=== PATIENT | male | born 1940 | race Caucasian/White ===

== ENCOUNTER 2019-08-05 07:33 | Inpatient (IN) | payer MEDICAID, OTHER, SELFPAY ==
[~2019-08-05] VITALS: Ht 165.1 cm; Wt 67.1 kg
[2019-08-05 08:59] LABS: BG CARBOXYHEMOGLOBIN 0.9 % (0.5-1.5); BG DEOXYHEMOGLOBIN 10.1 % (0.0-5.0); BG FRACTION INSPIRED OXYGEN 100; BG HCO3 ACT 17.1 mmol/L (22.0-26.0); BG METHEMOGLOBIN 0.1 % (0.0-1.5); BG OXYGEN SATURATION 89.8 % (92.0-98.5); BG OXYHEMOGLOBIN 88.9 % (94.0-97.0); BG PCO2 23.2 mmHg (35.0-45.0); BG PH 7.486 (7.350-7.450); BG PO2 57.5 mmHg (75.0-100.0); BG SAMPLE SITE RIGHT RADIAL; BG TOTAL HEMOGLOBIN 15.3 g/dL (12.0-18.0); BG VENT MODE MASK - NRB
[2019-08-05 08:59] LABS: BASOPHILS % 0.2 % (0.0-2.0); EOSINOPHILS % 0.3 % (0.0-5.0); HEMOGLOBIN. 14.6 g/dL (14.0-18.0); LYMPHOCYTES % 8.4 % (20.0-50.0); MEAN CORPUSCULAR HEMOGLOBIN 31.6 pg (28.0-32.0); MEAN CORPUSCULAR VOLUME 90.8 fL (80.0-94.0); MEAN PLATELET VOLUME 8.7 fl (7.4-10.4); MONOCYTES % 7.2 % (2.0-8.0); NEUTROPHILS % 83.9 % (40.0-76.0); PLATELET 213 x1000/uL (130-400); RED BLOOD CELL COUNT 4.63 mill/uL (4.7-6.1); RED CELL DISTRIBUTION WIDTH 13.8 % (11.6-14.6)
[2019-08-05 09:04] LABS: CHLORIDE 111 mEq/L (98-107)
[2019-08-05 09:10] LABS: D-DIMER 6.28 mg/L FEU (<0.50); PROTHROMBIN TIME 10.2 sec (9.6-11.0)
[2019-08-05 09:12] LABS: CREATINE KINASE 248 IU/L (39-308)
[2019-08-05] MEDS ORDERED: LEVOFLOXACIN 750MG PREMIX 150 ML IV ONE (10:15)
[2019-08-05 12:07] LABS: CLARITY URINE CLEAR (CLEAR); COLOR URINE YELLOW (YELLOW); KETONES URINE TRACE (NEGATIVE); LEUKOCYTE ESTERASE URINE NEGATIVE (NEGATIVE); NITRITE URINE NEGATIVE (NEGATIVE); OCCULT BLOOD URINE NEGATIVE (NEGATIVE); PROTEIN URINE 1+ (NEGATIVE); SPECIFIC GRAVITY URINE 1.024 (1.005-1.030)
[2019-08-05] MEDS ORDERED: ONDANSETRON HCL 4MG/2ML INJ IV PRN (13:00)
[2019-08-05] MEDS ORDERED: GUAIFENESIN 200MG/10ML SUGAR FREE UDC PO PRN (13:00)
[2019-08-05] MEDS ORDERED: MAGNESIUM/ALUMINUM HYDROXIDE/SIMETHICONE 30ML UDC PO PRN (13:00)
[2019-08-05] MEDS ORDERED: DOCUSATE SODIUM 100MG CAPSULE PO PRN (13:00)
[2019-08-05] MEDS ORDERED: CEFTRIAXONE 1 G PREMIX 50 ML IV SCH (14:30)
[2019-08-05] MEDS ORDERED: IOHEXOL-350 100 ML BOTTLE ONE (14:47)
[2019-08-05] MEDS ORDERED: ENOXAPARIN 40MG/0.4ML SYR SUBCUT SCH (15:00)
[2019-08-05] MEDS ORDERED: AZITHROMYCIN 500 MG in DEXT 5% WATER 250 ML IV SCH (15:00)
[2019-08-05] MEDS: POTASSIUM CHLORIDE 20MEQ TABLET SR PO SCH (15:20)
[2019-08-05] MEDS: SODIUM CHLORIDE 0.45% 1,000 ML IV NR (15:21)
[2019-08-05] MEDS: DEXAMETHASONE 4MG TABLET PO SCH (19:02)
[2019-08-05] MEDS: ALBUTEROL 6.7GM HFA INHALER ORI SCH (19:03)
[2019-08-05] MEDS: ENOXAPARIN 80MG/0.8ML SYR SUBCUT SCH (21:04)
[2019-08-06] VITALS (7 sets, daily range): BP systolic 128–139; BP diastolic 62–67
[2019-08-06] MEDS ORDERED: CALC1CAP22 PO (01:35)
[2019-08-06] MEDS ORDERED: IBUP-2029 PO (01:36)
[2019-08-06] MEDS ORDERED: GABA300S PO (01:36)
[2019-08-06] MEDS ORDERED: TETR15DR86 OP (01:37)
[2019-08-06] MEDS: ALBUTEROL 6.7GM HFA INHALER ORI SCH ×4 (04:00→18:46)
[2019-08-06] MEDS: DEXAMETHASONE 4MG TABLET PO SCH (08:52)
[2019-08-06] MEDS: POTASSIUM CHLORIDE 20MEQ TABLET SR PO SCH (08:52)
[2019-08-06] MEDS: ENOXAPARIN 80MG/0.8ML SYR SUBCUT SCH ×2 (08:53→21:05)
[2019-08-06] MEDS: SODIUM CHLORIDE 0.45% 1,000 ML IV NR (09:53)
[2019-08-06] MEDS ORDERED: MORPHINE SULFATE 2 MG/ML CPJ (NOT FOR IM USE) IV PRN (11:15)
[2019-08-06] MEDS: LORAZEPAM 2MG/ML CPJ IV PRN ×2 (11:49→21:27)
[2019-08-06] MEDS ORDERED: PNEUMOCOCCAL 23-VAL P-SAC VAC 0.5 ML IM ONE (12:00)
[2019-08-06] MEDS: CEFTRIAXONE 1 G PREMIX 50 ML IV SCH (16:14)
[2019-08-06] MEDS: AZITHROMYCIN 500 MG in DEXT 5% WATER 250 ML IV SCH (16:15)
[2019-08-07] VITALS (15 sets, daily range): BP systolic 95–148; BP diastolic 53–73
[2019-08-07] MEDS: SODIUM CHLORIDE 0.45% 1,000 ML IV NR ×2 (00:04→17:00)
[2019-08-07] MEDS: ALBUTEROL 6.7GM HFA INHALER ORI SCH ×4 (02:14→20:37)
[2019-08-07] MEDS: POTASSIUM CHLORIDE 20MEQ TABLET SR PO SCH (08:31)
[2019-08-07] MEDS: DEXAMETHASONE 4MG TABLET PO SCH (08:31)
[2019-08-07] MEDS: ENOXAPARIN 80MG/0.8ML SYR SUBCUT SCH ×2 (08:31→21:14)
[2019-08-07] MEDS: CEFTRIAXONE 1 G PREMIX 50 ML IV SCH (08:32)
[2019-08-07] MEDS: AZITHROMYCIN 500 MG in DEXT 5% WATER 250 ML IV SCH (08:32)
[2019-08-07 10:15] LABS: BG CARBOXYHEMOGLOBIN 0.4 % (0.5-1.5); BG DEOXYHEMOGLOBIN 12.7 % (0.0-5.0); BG FRACTION INSPIRED OXYGEN 100; BG HCO3 ACT 18.4 mmol/L (22.0-26.0); BG METHEMOGLOBIN 0.2 % (0.0-1.5); BG OXYGEN SATURATION 87.2 % (92.0-98.5); BG OXYHEMOGLOBIN 86.7 % (94.0-97.0); BG PCO2 27.1 mmHg (35.0-45.0); BG PO2 52.4 mmHg (75.0-100.0); BG SAMPLE SITE RIGHT RADIAL; BG TOTAL HEMOGLOBIN 14.4 g/dL (12.0-18.0); BG VENT MODE MASK - NRB
[2019-08-07] MEDS: LORAZEPAM 2MG/ML CPJ IV PRN (10:23)
[2019-08-07 10:30] LABS: CHLORIDE 111 mEq/L (98-107)
[2019-08-07] MEDS ORDERED: SODIUM BICARBONATE 8.4% 1 MEQ/ML 50ML SYR IV NR (12:30)
[2019-08-07] MEDS: PROPOFOL 10MG/ML 100ML 100 ML IV PRN ×3 (15:35→16:25)
[2019-08-07 17:32] LABS: BG CARBOXYHEMOGLOBIN 0.4 % (0.5-1.5); BG DEOXYHEMOGLOBIN 4.2 % (0.0-5.0); BG FRACTION INSPIRED OXYGEN 100; BG HCO3 ACT 20.5 mmol/L (22.0-26.0); BG METHEMOGLOBIN 0.3 % (0.0-1.5); BG OXYGEN SATURATION 95.8 % (92.0-98.5); BG OXYHEMOGLOBIN 95.1 % (94.0-97.0); BG PCO2 32.6 mmHg (35.0-45.0); BG PH 7.417 (7.350-7.450); BG PO2 84.7 mmHg (75.0-100.0); BG SAMPLE SITE RIGHT RADIAL; BG TIDAL VOLUME(mL) 500 mL; BG VENT MODE VENT - A/C PRVC; BG VENT RATE 20 set
[2019-08-08] VITALS (63 sets, daily range): BP systolic 87–146; BP diastolic 35–70
[2019-08-08] MEDS: PROPOFOL 10MG/ML 100ML 100 ML IV PRN ×4 (00:10→22:39)
[2019-08-08] MEDS: ALBUTEROL 6.7GM HFA INHALER ORI SCH ×4 (00:20→20:20)
[2019-08-08 08:08] LABS: HEMATOCRIT 38.7 % (42.0-52.0); HEMOGLOBIN 13.2 g/dL (14.0-18.0); MEAN CORPUSCULAR HEMOGLOBIN 31.6 pg (28.0-32.0); MEAN CORPUSCULAR VOLUME 93.1 fL (80.0-94.0); PLATELET 252 x1000/uL (130-400); RED BLOOD CELL COUNT 4.16 mill/uL (4.7-6.1); RED CELL DISTRIBUTION WIDTH 13.8 % (11.6-14.6)
[2019-08-08] MEDS: AZITHROMYCIN 500 MG in DEXT 5% WATER 250 ML IV SCH (10:02)
[2019-08-08] MEDS: CEFTRIAXONE 1 G PREMIX 50 ML IV SCH (10:02)
[2019-08-08] MEDS: ENOXAPARIN 80MG/0.8ML SYR SUBCUT SCH ×2 (10:03→21:02)
[2019-08-08] MEDS: DEXAMETHASONE 4MG TABLET PO SCH (10:03)
[2019-08-08] MEDS: SODIUM CHLORIDE 0.45% 1,000 ML IV NR (10:03)
[2019-08-08] MEDS ORDERED: POTASSIUM CHLORIDE 20MEQ/PACKET NG NR (10:15)
[2019-08-08] MEDS: FENTANYL CITRATE/PF 1,000 MCG in SODIUM CHLORIDE 0.9% 80 ML IV PRN (10:35)
[2019-08-08] MEDS: LORAZEPAM 2MG/ML CPJ IV PRN (17:51)
[2019-08-08 18:08] LABS: BG BASE EXCESS -3.7 mmol/L (-2.0-2.0); BG CARBOXYHEMOGLOBIN 0.3 % (0.5-1.5); BG DEOXYHEMOGLOBIN 3.7 % (0.0-5.0); BG FRACTION INSPIRED OXYGEN 100; BG HCO3 ACT 19.3 mmol/L (22.0-26.0); BG METHEMOGLOBIN 0.3 % (0.0-1.5); BG OXYGEN SATURATION 96.3 % (92.0-98.5); BG OXYHEMOGLOBIN 95.7 % (94.0-97.0); BG PCO2 29.4 mmHg (35.0-45.0); BG PH 7.436 (7.350-7.450); BG PO2 89.4 mmHg (75.0-100.0); BG SAMPLE SITE RIGHT RADIAL; BG TIDAL VOLUME(mL) 500 mL; BG TOTAL HEMOGLOBIN 12.9 g/dL (12.0-18.0); BG VENT MODE PRVC; BG VENT RATE 20 set
[2019-08-08] MEDS: ACETAMINOPHEN 325MG TABLET PO PRN (20:55)
[2019-08-09] VITALS (74 sets, daily range): BP systolic 85–129; BP diastolic 38–69
[2019-08-09] MEDS: FENTANYL CITRATE/PF 1,000 MCG in SODIUM CHLORIDE 0.9% 80 ML IV PRN (02:15)
[2019-08-09] MEDS: SODIUM CHLORIDE 0.45% 1,000 ML IV NR ×2 (04:48→19:26)
[2019-08-09] MEDS: PROPOFOL 10MG/ML 100ML 100 ML IV PRN ×3 (05:32→20:27)
[2019-08-09] MEDS: ALBUTEROL 6.7GM HFA INHALER ORI SCH ×4 (08:08→20:37)
[2019-08-09] MEDS: CEFTRIAXONE 1 G PREMIX 50 ML IV SCH (08:43)
[2019-08-09] MEDS: AZITHROMYCIN 500 MG in DEXT 5% WATER 250 ML IV SCH (08:43)
[2019-08-09] MEDS: ENOXAPARIN 80MG/0.8ML SYR SUBCUT SCH ×2 (08:44→21:04)
[2019-08-09] MEDS ORDERED: DEXAMETHASONE 10 MG/ML VIAL IV SCH (09:00)
[2019-08-09 09:31] LABS: BG BASE EXCESS -4.2 mmol/L (-2.0-2.0); BG CARBOXYHEMOGLOBIN 0.3 % (0.5-1.5); BG FRACTION INSPIRED OXYGEN 100; BG METHEMOGLOBIN 0.3 % (0.0-1.5); BG OXYHEMOGLOBIN 98.4 % (94.0-97.0); BG PCO2 34.1 mmHg (35.0-45.0); BG PH 7.386 (7.350-7.450); BG PO2 216.7 mmHg (75.0-100.0); BG SAMPLE SITE RIGHT RADIAL; BG TIDAL VOLUME(mL) 500 mL; BG TOTAL HEMOGLOBIN 14.3 g/dL (12.0-18.0); BG VENT MODE PRVC; BG VENT RATE 20 set
[2019-08-09] MEDS ORDERED: PROPOFOL 10MG/ML 100ML 100 ML IV PRN ×2 (10:30→22:08)
[2019-08-10] VITALS (44 sets, daily range): BP systolic 107–146; BP diastolic 42–65
[2019-08-10] MEDS: FENTANYL CITRATE/PF 1,000 MCG in SODIUM CHLORIDE 0.9% 80 ML IV PRN (02:15)
[2019-08-10] MEDS: PROPOFOL 10MG/ML 100ML 100 ML IV PRN (04:00)
[2019-08-10] MEDS: ALBUTEROL 6.7GM HFA INHALER ORI SCH ×5 (04:20→21:20)
[2019-08-10 08:08] LABS: BG BASE EXCESS -3.4 mmol/L (-2.0-2.0); BG CARBOXYHEMOGLOBIN 0.3 % (0.5-1.5); BG DEOXYHEMOGLOBIN 3.5 % (0.0-5.0); BG HCO3 ACT 20.7 mmol/L (22.0-26.0); BG METHEMOGLOBIN 0.3 % (0.0-1.5); BG OXYGEN SATURATION 96.5 % (92.0-98.5); BG OXYHEMOGLOBIN 95.9 % (94.0-97.0); BG PCO2 34.3 mmHg (35.0-45.0); BG PH 7.399 (7.350-7.450); BG PO2 86.4 mmHg (75.0-100.0); BG SAMPLE SITE RIGHT RADIAL; BG TIDAL VOLUME(mL) 500 mL; BG TOTAL HEMOGLOBIN 12.8 g/dL (12.0-18.0); BG VENT MODE VENT - A/C; BG VENT RATE 20 set
[2019-08-10] MEDS: DEXAMETHASONE 10 MG/ML VIAL IV SCH (09:48)
[2019-08-10] MEDS: ENOXAPARIN 80MG/0.8ML SYR SUBCUT SCH ×2 (09:48→21:00)
[2019-08-10] MEDS: MIDAZOLAM HCL 100 MG in DEXT 5% WATER 80 ML IV PRN (12:00)
[2019-08-10] MEDS: SODIUM CHLORIDE 0.45% 1,000 ML IV NR (13:12)
[2019-08-11] VITALS (61 sets, daily range): BP systolic 100–171; BP diastolic 43–96
[2019-08-11] MEDS: ALBUTEROL 6.7GM HFA INHALER ORI SCH ×2 (01:10→20:20)
[2019-08-11] MEDS: SODIUM CHLORIDE 0.45% 1,000 ML IV NR (04:04)
[2019-08-11] MEDS: MIDAZOLAM HCL 100 MG in DEXT 5% WATER 80 ML IV PRN (08:16)
[2019-08-11 08:39] LABS: BG BASE EXCESS -1.5 mmol/L (-2.0-2.0); BG CARBOXYHEMOGLOBIN 0.2 % (0.5-1.5); BG FRACTION INSPIRED OXYGEN 80; BG HCO3 ACT 22.8 mmol/L (22.0-26.0); BG METHEMOGLOBIN 0.2 % (0.0-1.5); BG OXYHEMOGLOBIN 95.6 % (94.0-97.0); BG PCO2 37.3 mmHg (35.0-45.0); BG PH 7.404 (7.350-7.450); BG SAMPLE SITE RIGHT RADIAL; BG TIDAL VOLUME(mL) 500 mL; BG TOTAL HEMOGLOBIN 13.8 g/dL (12.0-18.0); BG VENT MODE VENT - PRVC; BG VENT RATE 20 set
[2019-08-11] MEDS: DEXAMETHASONE 10 MG/ML VIAL IV SCH (08:43)
[2019-08-11] MEDS: ENOXAPARIN 80MG/0.8ML SYR SUBCUT SCH ×2 (08:43→21:00)
[2019-08-11] MEDS ORDERED: FUROSEMIDE 100MG/10ML VIAL IVP NR (12:30)
[2019-08-11] MEDS: ACETAMINOPHEN 325MG TABLET PO PRN (14:50)
[2019-08-11] MEDS: FENTANYL CITRATE/PF 1,000 MCG in SODIUM CHLORIDE 0.9% 80 ML IV PRN (22:15)
[2019-08-12] VITALS (65 sets, daily range): BP systolic 118–159; BP diastolic 71–96
[2019-08-12] MEDS: ALBUTEROL 6.7GM HFA INHALER ORI SCH ×4 (01:15→20:57)
[2019-08-12] MEDS: MIDAZOLAM HCL 100 MG in DEXT 5% WATER 80 ML IV PRN ×2 (04:35→21:43)
[2019-08-12 05:15] LABS: CHLORIDE 114 mEq/L (98-107)
[2019-08-12 05:20] LABS: HEMATOCRIT. 40.8 % (42.0-52.0); HEMOGLOBIN. 13.9 g/dL (14.0-18.0); MEAN CORPUSCULAR HEMOGLOBIN 31.7 pg (28.0-32.0); MEAN CORPUSCULAR VOLUME 93.3 fL (80.0-94.0); MEAN PLATELET VOLUME 8.7 fl (7.4-10.4); PLATELET 270 x1000/uL (130-400); RED BLOOD CELL COUNT 4.38 mill/uL (4.7-6.1); RED CELL DISTRIBUTION WIDTH 14.2 % (11.6-14.6)
[2019-08-12] MEDS: DEXAMETHASONE 10 MG/ML VIAL IV SCH (08:15)
[2019-08-12] MEDS: ENOXAPARIN 80MG/0.8ML SYR SUBCUT SCH ×2 (08:16→20:57)
[2019-08-12 08:58] LABS: BG BASE EXCESS -3.4 mmol/L (-2.0-2.0); BG CARBOXYHEMOGLOBIN 0.1 % (0.5-1.5); BG DEOXYHEMOGLOBIN 1.1 % (0.0-5.0); BG FRACTION INSPIRED OXYGEN 80; BG HCO3 ACT 22.7 mmol/L (22.0-26.0); BG METHEMOGLOBIN 0.1 % (0.0-1.5); BG OXYGEN SATURATION 98.9 % (92.0-98.5); BG OXYHEMOGLOBIN 98.7 % (94.0-97.0); BG PCO2 44.4 mmHg (35.0-45.0); BG PH 7.326 (7.350-7.450); BG SAMPLE SITE RIGHT RADIAL; BG TIDAL VOLUME(mL) 500 mL; BG TOTAL HEMOGLOBIN 15.6 g/dL (12.0-18.0); BG VENT MODE PRVC; BG VENT RATE 20 set
[2019-08-12] MEDS: ACETAMINOPHEN 325MG TABLET PO PRN ×2 (09:01→18:19)
[2019-08-12 09:51] LABS: PLATELET ESTIMATE NORMAL
[2019-08-12] MEDS: FENTANYL CITRATE/PF 1,000 MCG in SODIUM CHLORIDE 0.9% 80 ML IV PRN (18:17)
[2019-08-13] VITALS (82 sets, daily range): BP systolic 126–174; BP diastolic 72–122
[2019-08-13] MEDS: ACETAMINOPHEN 325MG TABLET PO PRN ×4 (00:27→19:05)
[2019-08-13] MEDS: ALBUTEROL 6.7GM HFA INHALER ORI SCH ×2 (05:25→12:40)
[2019-08-13 08:34] LABS: BG BASE EXCESS -1.6 mmol/L (-2.0-2.0); BG CARBOXYHEMOGLOBIN 0.3 % (0.5-1.5); BG DEOXYHEMOGLOBIN 2.4 % (0.0-5.0); BG FRACTION INSPIRED OXYGEN 60; BG HCO3 ACT 23.3 mmol/L (22.0-26.0); BG METHEMOGLOBIN 0.2 % (0.0-1.5); BG OXYGEN SATURATION 97.6 % (92.0-98.5); BG OXYHEMOGLOBIN 97.1 % (94.0-97.0); BG PCO2 40.2 mmHg (35.0-45.0); BG PH 7.381 (7.350-7.450); BG PO2 97.3 mmHg (75.0-100.0); BG SAMPLE SITE RIGHT BRACHIAL; BG TIDAL VOLUME(mL) 500 mL; BG TOTAL HEMOGLOBIN 15.7 g/dL (12.0-18.0); BG VENT MODE VENT- PRVC; BG VENT RATE 20 set
[2019-08-13] MEDS: DEXAMETHASONE 10 MG/ML VIAL IV SCH (08:39)
[2019-08-13] MEDS: ENOXAPARIN 80MG/0.8ML SYR SUBCUT SCH ×2 (08:42→21:08)
[2019-08-13] MEDS: DOCUSATE SODIUM SUGAR FREE 100MG/10ML UDC NG PRN (08:42)
[2019-08-13 10:58] LABS: HEMATOCRIT 45.6 % (42.0-52.0); MEAN CORPUSCULAR HEMOGLOBIN 31.4 pg (28.0-32.0); MEAN CORPUSCULAR VOLUME 95.3 fL (80.0-94.0); PLATELET 263 x1000/uL (130-400); RED BLOOD CELL COUNT 4.79 mill/uL (4.7-6.1); RED CELL DISTRIBUTION WIDTH 14.6 % (11.6-14.6)
[2019-08-13 11:11] LABS: CHLORIDE 120 mEq/L (98-107)
[2019-08-13] MEDS: METOCLOPRAMIDE HCL 10MG/2ML VIAL IV SCH ×2 (12:00→19:04)
[2019-08-13] MEDS ORDERED: SODIUM POLYSTYRENE SULFONATE 15 G/60 ML BOT PO NR (13:00)
[2019-08-13] MEDS: CEFEPIME 2,000 MG in DEXT 5% WATER 100 ML IV SCH (13:01)
[2019-08-13] MEDS: METRONIDAZOLE 500 MG PREMIX 100 ML IV SCH ×2 (13:04→21:09)
[2019-08-13] MEDS: FENTANYL CITRATE/PF 1,000 MCG in SODIUM CHLORIDE 0.9% 80 ML IV PRN (14:48)
[2019-08-13] MEDS: MIDAZOLAM HCL 100 MG in DEXT 5% WATER 80 ML IV PRN (16:12)
[2019-08-14] VITALS (86 sets, daily range): BP systolic 111–144; BP diastolic 70–89
[2019-08-14] MEDS: METOCLOPRAMIDE HCL 10MG/2ML VIAL IV SCH ×4 (00:02→17:57)
[2019-08-14] MEDS: CEFEPIME 2,000 MG in DEXT 5% WATER 100 ML IV SCH ×2 (00:02→13:17)
[2019-08-14] MEDS: ALBUTEROL 6.7GM HFA INHALER ORI SCH ×4 (01:30→20:05)
[2019-08-14] MEDS: ACETAMINOPHEN 325MG TABLET PO PRN ×2 (01:39→08:37)
[2019-08-14] MEDS: METRONIDAZOLE 500 MG PREMIX 100 ML IV SCH ×3 (05:50→22:02)
[2019-08-14 05:58] LABS: CLARITY URINE CLEAR (CLEAR); COLOR URINE DARK YELLOW (YELLOW); KETONES URINE NEGATIVE (NEGATIVE); LEUKOCYTE ESTERASE URINE TRACE (NEGATIVE); NITRITE URINE NEGATIVE (NEGATIVE); OCCULT BLOOD URINE 2+ (NEGATIVE); PH URINE 5.5 (4.5-8.0); PROTEIN URINE 1+ (NEGATIVE); SPECIFIC GRAVITY URINE 1.038 (1.005-1.030)
[2019-08-14 08:32] LABS: HEMATOCRIT. 48.2 % (42.0-52.0); HEMOGLOBIN. 15.7 g/dL (14.0-18.0); MEAN CORPUSCULAR HEMOGLOBIN 31.1 pg (28.0-32.0); MEAN CORPUSCULAR VOLUME 95.2 fL (80.0-94.0); MEAN PLATELET VOLUME 9.4 fl (7.4-10.4); PLATELET 229 x1000/uL (130-400); RED BLOOD CELL COUNT 5.06 mill/uL (4.7-6.1); RED CELL DISTRIBUTION WIDTH 14.6 % (11.6-14.6)
[2019-08-14] MEDS: DEXAMETHASONE 4MG/ML 1ML VIAL IV SCH (08:37)
[2019-08-14] MEDS: ENOXAPARIN 80MG/0.8ML SYR SUBCUT SCH ×2 (08:38→22:01)
[2019-08-14 08:48] LABS: CHLORIDE 121 mEq/L (98-107)
[2019-08-14 09:25] LABS: PLATELET ESTIMATE NORMAL
[2019-08-14] MEDS ORDERED: ATROPINE SULFATE 1MG/10ML SYR ONE (11:15)
[2019-08-14] MEDS: FENTANYL CITRATE/PF 1,000 MCG in SODIUM CHLORIDE 0.9% 80 ML IV PRN (13:42)
[2019-08-14] MEDS: LINEZOLID 600 MG PREMIX 300 ML IV SCH (17:57)
[2019-08-14] MEDS: MIDAZOLAM HCL 100 MG in DEXT 5% WATER 80 ML IV PRN (17:59)
[2019-08-15] VITALS (87 sets, daily range): BP systolic 74–125; BP diastolic 48–77
[2019-08-15] MEDS: METOCLOPRAMIDE HCL 10MG/2ML VIAL IV SCH ×5 (00:55→23:59)
[2019-08-15] MEDS: CEFEPIME 2,000 MG in DEXT 5% WATER 100 ML IV SCH ×2 (00:59→13:00)
[2019-08-15] MEDS: ALBUTEROL 6.7GM HFA INHALER ORI SCH ×3 (01:30→13:00)
[2019-08-15] MEDS: LINEZOLID 600 MG PREMIX 300 ML IV SCH ×2 (06:00→18:30)
[2019-08-15] MEDS: METRONIDAZOLE 500 MG PREMIX 100 ML IV SCH ×3 (06:00→20:58)
[2019-08-15] MEDS: DEXAMETHASONE 4MG/ML 1ML VIAL IV SCH (09:02)
[2019-08-15] MEDS: ENOXAPARIN 80MG/0.8ML SYR SUBCUT SCH (09:03)
[2019-08-15 10:04] LABS: BG BASE EXCESS -1.5 mmol/L (-2.0-2.0); BG CARBOXYHEMOGLOBIN 0.6 % (0.5-1.5); BG DEOXYHEMOGLOBIN 0.8 % (0.0-5.0); BG FRACTION INSPIRED OXYGEN 60; BG HCO3 ACT 26.3 mmol/L (22.0-26.0); BG METHEMOGLOBIN 0.5 % (0.0-1.5); BG OXYGEN SATURATION 99.2 % (92.0-98.5); BG OXYHEMOGLOBIN 98.1 % (94.0-97.0); BG PCO2 56.3 mmHg (35.0-45.0); BG PH 7.287 (7.350-7.450); BG PO2 171.5 mmHg (75.0-100.0); BG SAMPLE SITE RIGHT RADIAL; BG TIDAL VOLUME(mL) 500 mL; BG VENT MODE PRVC; BG VENT RATE 20 set
[2019-08-15] MEDS: FENTANYL CITRATE/PF 1,000 MCG in SODIUM CHLORIDE 0.9% 80 ML IV PRN ×2 (11:20→19:00)
[2019-08-15] MEDS: ACETAMINOPHEN 325MG TABLET PO PRN ×3 (11:40→21:01)
[2019-08-15] MEDS: MIDAZOLAM HCL 100 MG in DEXT 5% WATER 80 ML IV PRN ×2 (16:52→18:35)
[2019-08-15] MEDS: DEXT 5%/0.2% NACL 1,000 ML IV SCH (19:29)
[2019-08-15] MEDS ORDERED: NACL IV SCH (19:30)
[2019-08-15] MEDS ORDERED: DEXT IV SCH (19:30)
[2019-08-15] MEDS: PHENYLEPHRINE 10 MG in DEXT 5% WATER 249 ML IV PRN ×2 (19:53→22:50)
[2019-08-15] MEDS: ENOXAPARIN 60MG/0.6ML SYR SUBCUT SCH (20:58)
[2019-08-16] VITALS (88 sets, daily range): BP systolic 76–149; BP diastolic 40–79
[2019-08-16] MEDS: FENTANYL CITRATE/PF 1,000 MCG in SODIUM CHLORIDE 0.9% 80 ML IV PRN (00:01)
[2019-08-16] MEDS: PHENYLEPHRINE 40 MG in DEXT 5% WATER 246 ML IV PRN ×4 (00:15→22:35)
[2019-08-16] MEDS: DEXT 5%/0.2% NACL 1,000 ML IV SCH ×3 (02:54→20:35)
[2019-08-16] MEDS: MIDAZOLAM HCL 100 MG in DEXT 5% WATER 80 ML IV PRN (05:03)
[2019-08-16] MEDS: METOCLOPRAMIDE HCL 10MG/2ML VIAL IV SCH ×3 (05:04→17:35)
[2019-08-16] MEDS: METRONIDAZOLE 500 MG PREMIX 100 ML IV SCH ×3 (05:04→21:43)
[2019-08-16] MEDS: LINEZOLID 600 MG PREMIX 300 ML IV SCH ×2 (06:33→17:32)
[2019-08-16] MEDS: ALBUTEROL 6.7GM HFA INHALER ORI SCH (08:28)
[2019-08-16 08:43] LABS: BG BASE EXCESS -2.5 mmol/L (-2.0-2.0); BG CARBOXYHEMOGLOBIN 0.7 % (0.5-1.5); BG DEOXYHEMOGLOBIN 1.4 % (0.0-5.0); BG FRACTION INSPIRED OXYGEN 50; BG METHEMOGLOBIN 0.3 % (0.0-1.5); BG OXYHEMOGLOBIN 97.6 % (94.0-97.0); BG PCO2 47.5 mmHg (35.0-45.0); BG PH 7.321 (7.350-7.450); BG PO2 132.5 mmHg (75.0-100.0); BG SAMPLE SITE RIGHT RADIAL; BG TIDAL VOLUME(mL) 500 mL; BG TOTAL HEMOGLOBIN 13.1 g/dL (12.0-18.0); BG VENT MODE VENT - PRVC; BG VENT RATE 24 set
[2019-08-16] MEDS: DEXAMETHASONE 4MG/ML 1ML VIAL IV SCH (08:55)
[2019-08-16] MEDS: ENOXAPARIN 60MG/0.6ML SYR SUBCUT SCH ×3 (08:55→21:00)
[2019-08-16] MEDS ORDERED: IPRATROPIUM/ALBUTEROL 0.5-3(2.5)MG/3ML NEB HHN PRN (11:00)
[2019-08-16] MEDS: CEFEPIME 2,000 MG in DEXT 5% WATER 100 ML IV SCH ×3 (13:15)
[2019-08-16] MEDS: IPRATROPIUM/ALBUTEROL 0.5-3(2.5)MG/3ML NEB HHN SCH ×2 (14:42→22:26)
[2019-08-16 16:57] LABS: HEMATOCRIT. 41.4 % (42.0-52.0); HEMOGLOBIN. 13.2 g/dL (14.0-18.0); MEAN CORPUSCULAR HEMOGLOBIN 30.9 pg (28.0-32.0); MEAN CORPUSCULAR VOLUME 97.1 fL (80.0-94.0); MEAN PLATELET VOLUME 11.9 fl (7.4-10.4); PLATELET 141 x1000/uL (130-400); RED BLOOD CELL COUNT 4.26 mill/uL (4.7-6.1); RED CELL DISTRIBUTION WIDTH 14.9 % (11.6-14.6)
[2019-08-16 17:00] LABS: CHLORIDE 109 mEq/L (98-107)
[2019-08-16 17:58] LABS: PLATELET ESTIMATE NORMAL
[2019-08-16] MEDS ORDERED: SODIUM POLYSTYRENE SULFONATE 15 G/60 ML BOT NG SCH (21:00)
[2019-08-17] VITALS (80 sets, daily range): BP systolic 84–128; BP diastolic 48–68
[2019-08-17] MEDS: CEFEPIME 2,000 MG in DEXT 5% WATER 100 ML IV SCH ×2 (00:10→12:29)
[2019-08-17] MEDS: METOCLOPRAMIDE HCL 10MG/2ML VIAL IV SCH ×4 (00:11→17:02)
[2019-08-17] MEDS: FENTANYL CITRATE/PF 1,000 MCG in SODIUM CHLORIDE 0.9% 80 ML IV PRN ×3 (03:31→18:48)
[2019-08-17] MEDS: MIDAZOLAM HCL 100 MG in DEXT 5% WATER 80 ML IV PRN ×3 (03:32→20:24)
[2019-08-17] MEDS: IPRATROPIUM/ALBUTEROL 0.5-3(2.5)MG/3ML NEB HHN SCH ×4 (03:43→19:55)
[2019-08-17] MEDS: PHENYLEPHRINE 40 MG in DEXT 5% WATER 246 ML IV PRN ×4 (04:07→17:03)
[2019-08-17] MEDS: DEXT 5%/0.2% NACL 1,000 ML IV SCH ×2 (04:07→14:33)
[2019-08-17 05:50] LABS: HEMATOCRIT. 38.3 % (42.0-52.0); HEMOGLOBIN. 12.5 g/dL (14.0-18.0); MEAN CORPUSCULAR HEMOGLOBIN 31.3 pg (28.0-32.0); MEAN CORPUSCULAR VOLUME 96.1 fL (80.0-94.0); MEAN PLATELET VOLUME 11.2 fl (7.4-10.4); PLATELET 185 x1000/uL (130-400); RED BLOOD CELL COUNT 3.98 mill/uL (4.7-6.1); RED CELL DISTRIBUTION WIDTH 14.6 % (11.6-14.6)
[2019-08-17 05:55] LABS: CHLORIDE 106 mEq/L (98-107)
[2019-08-17] MEDS: LINEZOLID 600 MG PREMIX 300 ML IV SCH ×2 (06:05→17:02)
[2019-08-17] MEDS: METRONIDAZOLE 500 MG PREMIX 100 ML IV SCH ×3 (06:05→22:05)
[2019-08-17] MEDS: ENOXAPARIN 60MG/0.6ML SYR SUBCUT SCH (08:47)
[2019-08-17 09:11] LABS: BG BASE EXCESS -5.1 mmol/L (-2.0-2.0); BG CARBOXYHEMOGLOBIN 0.2 % (0.5-1.5); BG DEOXYHEMOGLOBIN 6.1 % (0.0-5.0); BG FRACTION INSPIRED OXYGEN 50; BG HCO3 ACT 22.3 mmol/L (22.0-26.0); BG METHEMOGLOBIN 0.1 % (0.0-1.5); BG OXYGEN SATURATION 93.9 % (92.0-98.5); BG OXYHEMOGLOBIN 93.6 % (94.0-97.0); BG PCO2 51.5 mmHg (35.0-45.0); BG PH 7.255 (7.350-7.450); BG PO2 71.5 mmHg (75.0-100.0); BG SAMPLE SITE RIGHT RADIAL; BG TIDAL VOLUME(mL) 500 mL; BG TOTAL HEMOGLOBIN 12.1 g/dL (12.0-18.0); BG VENT MODE PRVC; BG VENT RATE 24 set
[2019-08-17 11:33] LABS: NUCLEATED RED BLOOD CELLS 2 /100 WBC
[2019-08-17 11:34] LABS: PLATELET ESTIMATE NORMAL
[2019-08-17] MEDS: ENOXAPARIN 80MG/0.8ML SYR SUBCUT SCH (21:00)
[2019-08-18] VITALS (87 sets, daily range): BP systolic 89–154; BP diastolic 52–82
[2019-08-18] MEDS: CEFEPIME 2,000 MG in DEXT 5% WATER 100 ML IV SCH ×2 (00:57→12:53)
[2019-08-18] MEDS: PHENYLEPHRINE 40 MG in DEXT 5% WATER 246 ML IV PRN ×6 (00:57→23:27)
[2019-08-18] MEDS: METOCLOPRAMIDE HCL 10MG/2ML VIAL IV SCH ×5 (01:00→23:32)
[2019-08-18 04:53] LABS: HEMATOCRIT. 34.8 % (42.0-52.0); HEMOGLOBIN. 11.4 g/dL (14.0-18.0); MEAN CORPUSCULAR HEMOGLOBIN 31.5 pg (28.0-32.0); MEAN PLATELET VOLUME 10.9 fl (7.4-10.4); PLATELET 214 x1000/uL (130-400); RED BLOOD CELL COUNT 3.63 mill/uL (4.7-6.1); RED CELL DISTRIBUTION WIDTH 14.2 % (11.6-14.6)
[2019-08-18] MEDS: MIDAZOLAM HCL 100 MG in DEXT 5% WATER 80 ML IV PRN (05:01)
[2019-08-18] MEDS: FENTANYL CITRATE/PF 1,000 MCG in SODIUM CHLORIDE 0.9% 80 ML IV PRN (05:01)
[2019-08-18] MEDS: METRONIDAZOLE 500 MG PREMIX 100 ML IV SCH ×3 (05:02→21:51)
[2019-08-18] MEDS: LINEZOLID 600 MG PREMIX 300 ML IV SCH ×2 (05:02→17:57)
[2019-08-18] MEDS: ACETAMINOPHEN 325MG TABLET PO PRN (06:48)
[2019-08-18 07:03] LABS: PLATELET ESTIMATE NORMAL
[2019-08-18] MEDS: IPRATROPIUM/ALBUTEROL 0.5-3(2.5)MG/3ML NEB HHN SCH ×3 (08:48→19:50)
[2019-08-18 09:06] LABS: BG BASE EXCESS -5.1 mmol/L (-2.0-2.0); BG CARBOXYHEMOGLOBIN 0.3 % (0.5-1.5); BG DEOXYHEMOGLOBIN 0.5 % (0.0-5.0); BG FRACTION INSPIRED OXYGEN 100; BG HCO3 ACT 22.9 mmol/L (22.0-26.0); BG METHEMOGLOBIN 0.5 % (0.0-1.5); BG OXYGEN SATURATION 99.5 % (92.0-98.5); BG OXYHEMOGLOBIN 98.7 % (94.0-97.0); BG PCO2 55.7 mmHg (35.0-45.0); BG PH 7.231 (7.350-7.450); BG PO2 290.5 mmHg (75.0-100.0); BG SAMPLE SITE RIGHT RADIAL; BG TIDAL VOLUME(mL) 500 mL; BG TOTAL HEMOGLOBIN 11.7 g/dL (12.0-18.0); BG VENT MODE PRVC; BG VENT RATE 24 set
[2019-08-18] MEDS: ENOXAPARIN 80MG/0.8ML SYR SUBCUT SCH ×2 (09:33→20:36)
[2019-08-18] MEDS: DEXT 5%/0.2% NACL 1,000 ML IV SCH (09:34)
[2019-08-18] MEDS ORDERED: SODIUM BICARBONATE 8.4% 1 MEQ/ML 50ML SYR IV NR ×2 (10:00→16:00)
[2019-08-18] MEDS ORDERED: INSULIN REGULAR (HUMULIN R) 300UNITS/3ML IV NR ×2 (10:03→10:30)
[2019-08-18] MEDS: FAMOTIDINE 20MG/2ML VIAL IV SCH (10:07)
[2019-08-18] MEDS ORDERED: INSULIN REGULAR (HUMULIN R) UD 100 UNITS/ML SYR IV NR (10:30)
[2019-08-18] MEDS ORDERED: DEXTROSE 50% WATER 50ML SYRINGE IV NR (10:30)
[2019-08-18] MEDS: DEXT 5%/0.9% NACL 1,000 ML IV SCH (10:43)
[2019-08-18 13:05] LABS: BG BASE EXCESS -4.9 mmol/L (-2.0-2.0); BG CARBOXYHEMOGLOBIN 0.3 % (0.5-1.5); BG DEOXYHEMOGLOBIN 0.9 % (0.0-5.0); BG FRACTION INSPIRED OXYGEN 70; BG HCO3 ACT 22.5 mmol/L (22.0-26.0); BG METHEMOGLOBIN 0.3 % (0.0-1.5); BG OXYGEN SATURATION 99.1 % (92.0-98.5); BG OXYHEMOGLOBIN 98.5 % (94.0-97.0); BG PCO2 51.3 mmHg (35.0-45.0); BG PH 7.259 (7.350-7.450); BG PO2 185.8 mmHg (75.0-100.0); BG SAMPLE SITE RIGHT RADIAL; BG TIDAL VOLUME(mL) 500 mL; BG TOTAL HEMOGLOBIN 12.7 g/dL (12.0-18.0); BG VENT MODE PRVC; BG VENT RATE 30 set
[2019-08-18] MEDS ORDERED: CALCIUM GLUCONATE 1,000 MG in DEXT 5% WATER 90 ML IV NR (13:30)
[2019-08-19] VITALS (86 sets, daily range): BP systolic 94–136; BP diastolic 49–84
[2019-08-19] MEDS: IPRATROPIUM/ALBUTEROL 0.5-3(2.5)MG/3ML NEB HHN SCH ×2 (00:55→20:36)
[2019-08-19] MEDS: AMPICILLIN 1,000 MG in SODIUM CHLORIDE 0.9% 50 ML IV SCH ×5 (01:30→23:42)
[2019-08-19 04:48] LABS: HEMATOCRIT. 30.6 % (42.0-52.0); HEMOGLOBIN. 10.3 g/dL (14.0-18.0); MEAN CORPUSCULAR HEMOGLOBIN 31.8 pg (28.0-32.0); MEAN CORPUSCULAR VOLUME 94.2 fL (80.0-94.0); MEAN PLATELET VOLUME 10.5 fl (7.4-10.4); PLATELET 229 x1000/uL (130-400); RED BLOOD CELL COUNT 3.25 mill/uL (4.7-6.1)
[2019-08-19] MEDS: METOCLOPRAMIDE HCL 10MG/2ML VIAL IV SCH ×4 (05:41→23:42)
[2019-08-19] MEDS: MIDAZOLAM HCL 100 MG in DEXT 5% WATER 80 ML IV PRN (09:13)
[2019-08-19 09:33] LABS: BG BASE EXCESS 0.5 mmol/L (-2.0-2.0); BG CARBOXYHEMOGLOBIN 0.3 % (0.5-1.5); BG DEOXYHEMOGLOBIN 1.5 % (0.0-5.0); BG FRACTION INSPIRED OXYGEN 70; BG HCO3 ACT 24.3 mmol/L (22.0-26.0); BG METHEMOGLOBIN 0.3 % (0.0-1.5); BG OXYGEN SATURATION 98.5 % (92.0-98.5); BG OXYHEMOGLOBIN 97.9 % (94.0-97.0); BG PCO2 35.8 mmHg (35.0-45.0); BG PH 7.449 (7.350-7.450); BG PO2 137.1 mmHg (75.0-100.0); BG SAMPLE SITE RIGHT RADIAL; BG TIDAL VOLUME(mL) 550 mL; BG TOTAL HEMOGLOBIN 10.4 g/dL (12.0-18.0); BG VENT MODE VENT- PRVC; BG VENT RATE 30 set
[2019-08-19] MEDS: FAMOTIDINE 20MG/2ML VIAL IV SCH (09:55)
[2019-08-19] MEDS: DEXT 5%/0.9% NACL 1,000 ML IV SCH (09:56)
[2019-08-19 12:16] LABS: PLATELET ESTIMATE NORMAL
[2019-08-19] MEDS: FENTANYL CITRATE/PF 1,000 MCG in SODIUM CHLORIDE 0.9% 80 ML IV PRN (20:04)
[2019-08-20] VITALS (96 sets, daily range): BP systolic 99–137; BP diastolic 51–71
[2019-08-20] MEDS: IPRATROPIUM/ALBUTEROL 0.5-3(2.5)MG/3ML NEB HHN SCH ×4 (01:56→21:15)
[2019-08-20] MEDS: AMPICILLIN 1,000 MG in SODIUM CHLORIDE 0.9% 50 ML IV SCH ×3 (05:11→17:51)
[2019-08-20] MEDS: METOCLOPRAMIDE HCL 10MG/2ML VIAL IV SCH ×3 (05:11→17:49)
[2019-08-20 05:19] LABS: HEMATOCRIT. 29.1 % (42.0-52.0); MEAN CORPUSCULAR HEMOGLOBIN 31.8 pg (28.0-32.0); MEAN CORPUSCULAR VOLUME 92.8 fL (80.0-94.0); MEAN PLATELET VOLUME 9.9 fl (7.4-10.4); PLATELET 246 x1000/uL (130-400); RED BLOOD CELL COUNT 3.14 mill/uL (4.7-6.1); RED CELL DISTRIBUTION WIDTH 13.8 % (11.6-14.6)
[2019-08-20 05:31] LABS: CHLORIDE 103 mEq/L (98-107); PROTHROMBIN TIME 10.5 sec (9.6-11.0)
[2019-08-20 07:45] LABS: BG BASE EXCESS 3.5 mmol/L (-2.0-2.0); BG CARBOXYHEMOGLOBIN 0.3 % (0.5-1.5); BG DEOXYHEMOGLOBIN 1.9 % (0.0-5.0); BG FRACTION INSPIRED OXYGEN 70; BG HCO3 ACT 28.1 mmol/L (22.0-26.0); BG METHEMOGLOBIN 0.3 % (0.0-1.5); BG OXYGEN SATURATION 98.1 % (92.0-98.5); BG OXYHEMOGLOBIN 97.5 % (94.0-97.0); BG PCO2 42.9 mmHg (35.0-45.0); BG PH 7.434 (7.350-7.450); BG SAMPLE SITE RIGHT RADIAL; BG TIDAL VOLUME(mL) 550 mL; BG TOTAL HEMOGLOBIN 10.3 g/dL (12.0-18.0); BG VENT MODE VENT- PRVC; BG VENT RATE 30 set
[2019-08-20] MEDS ORDERED: PROPOFOL 10MG/ML 100ML 100 ML IV PRN (08:30)
[2019-08-20] MEDS ORDERED: LIDOCAINE 1%/EPI 1:100,000 10 ML VIAL IJ NR (09:30)
[2019-08-20] MEDS ORDERED: LIDOCAINE HCL/EPINEPHRINE 1%-EPI 1:100,000 30 ML VIAL INFIL NR (09:30)
[2019-08-20] MEDS: FAMOTIDINE 20MG/2ML VIAL IV SCH (09:33)
[2019-08-20] MEDS ORDERED: PROPOFOL 200MG/20ML VIAL IV NR (12:30)
[2019-08-20 14:53] LABS: PLATELET ESTIMATE NORMAL
[2019-08-20] MEDS: FENTANYL CITRATE/PF 1,000 MCG in SODIUM CHLORIDE 0.9% 80 ML IV PRN (17:56)
[2019-08-21] VITALS (101 sets, daily range): BP systolic 117–181; BP diastolic 57–91
[2019-08-21] MEDS: AMPICILLIN 1,000 MG in SODIUM CHLORIDE 0.9% 50 ML IV SCH ×4 (00:18→18:34)
[2019-08-21] MEDS: METOCLOPRAMIDE HCL 10MG/2ML VIAL IV SCH ×4 (00:18→18:33)
[2019-08-21] MEDS: IPRATROPIUM/ALBUTEROL 0.5-3(2.5)MG/3ML NEB HHN SCH ×4 (00:40→20:25)
[2019-08-21 05:33] LABS: HEMATOCRIT 29.2 % (42.0-52.0); HEMOGLOBIN 9.7 g/dL (14.0-18.0); MEAN CORPUSCULAR HEMOGLOBIN 31.6 pg (28.0-32.0); MEAN CORPUSCULAR VOLUME 94.8 fL (80.0-94.0); PLATELET 242 x1000/uL (130-400); RED BLOOD CELL COUNT 3.08 mill/uL (4.7-6.1); RED CELL DISTRIBUTION WIDTH 14.2 % (11.6-14.6)
[2019-08-21 05:35] LABS: CHLORIDE 110 mEq/L (98-107)
[2019-08-21 05:55] LABS: HEPATITIS B SURFACE AB < 3.1 mIU/mL
[2019-08-21] MEDS: PANTOPRAZOLE SODIUM 40 MG/VIAL IV SCH (08:48)
[2019-08-21 09:39] LABS: BG BASE EXCESS 2.8 mmol/L (-2.0-2.0); BG CARBOXYHEMOGLOBIN 0.3 % (0.5-1.5); BG DEOXYHEMOGLOBIN 1.7 % (0.0-5.0); BG FRACTION INSPIRED OXYGEN 60; BG HCO3 ACT 26.8 mmol/L (22.0-26.0); BG METHEMOGLOBIN 0.1 % (0.0-1.5); BG OXYGEN SATURATION 98.3 % (92.0-98.5); BG OXYHEMOGLOBIN 97.9 % (94.0-97.0); BG PCO2 38.6 mmHg (35.0-45.0); BG PH 7.459 (7.350-7.450); BG PO2 118.5 mmHg (75.0-100.0); BG SAMPLE SITE LEFT RADIAL; BG TIDAL VOLUME(mL) 550 mL; BG TOTAL HEMOGLOBIN 10.3 g/dL (12.0-18.0); BG VENT MODE VENT - PRVC; BG VENT RATE 28 set
[2019-08-21] MEDS: CHOLECALCIFEROL (D3) 1000 UNIT TABLET NG SCH (11:48)
[2019-08-21] MEDS: ENOXAPARIN 80MG/0.8ML SYR SUBCUT SCH ×2 (11:48→21:00)
[2019-08-21] MEDS: FOLIC ACID/VITAMIN B COMP W-C TABLET NG SCH (11:48)
[2019-08-21] MEDS: ASCORBIC ACID 500 MG TABLET NG SCH ×2 (11:49→18:33)
[2019-08-21] MEDS: ZINC SULFATE 220 MG ( 50 ) CAPSULE NG SCH (11:56)
[2019-08-21] MEDS: FENTANYL CITRATE/PF 1,000 MCG in SODIUM CHLORIDE 0.9% 80 ML IV PRN (11:57)
[2019-08-21] MEDS: CLONIDINE 0.1MG TABLET PO PRN (18:33)
[2019-08-22] VITALS (89 sets, daily range): BP systolic 94–181; BP diastolic 13–105
[2019-08-22] MEDS: AMPICILLIN 1,000 MG in SODIUM CHLORIDE 0.9% 50 ML IV SCH ×5 (00:09→23:22)
[2019-08-22] MEDS: METOCLOPRAMIDE HCL 10MG/2ML VIAL IV SCH ×5 (00:09→23:23)
[2019-08-22 05:29] LABS: HEMATOCRIT. 29.1 % (42.0-52.0); MEAN CORPUSCULAR VOLUME 93.4 fL (80.0-94.0); MEAN PLATELET VOLUME 8.9 fl (7.4-10.4); PLATELET 371 x1000/uL (130-400); RED BLOOD CELL COUNT 3.12 mill/uL (4.7-6.1); RED CELL DISTRIBUTION WIDTH 13.7 % (11.6-14.6)
[2019-08-22 05:38] LABS: CHLORIDE 110 mEq/L (98-107)
[2019-08-22] MEDS: CLONIDINE 0.1MG TABLET PO PRN ×4 (07:23→23:22)
[2019-08-22] MEDS: FENTANYL CITRATE/PF 1,000 MCG in SODIUM CHLORIDE 0.9% 80 ML IV PRN ×2 (07:24→11:14)
[2019-08-22 08:03] LABS: BG CARBOXYHEMOGLOBIN 0.3 % (0.5-1.5); BG DEOXYHEMOGLOBIN 4.3 % (0.0-5.0); BG FRACTION INSPIRED OXYGEN 50; BG HCO3 ACT 28.6 mmol/L (22.0-26.0); BG METHEMOGLOBIN 0.1 % (0.0-1.5); BG OXYGEN SATURATION 95.7 % (92.0-98.5); BG OXYHEMOGLOBIN 95.3 % (94.0-97.0); BG PCO2 43.2 mmHg (35.0-45.0); BG PH 7.439 (7.350-7.450); BG PO2 77.9 mmHg (75.0-100.0); BG SAMPLE SITE RIGHT RADIAL; BG TIDAL VOLUME(mL) 550 mL; BG TOTAL HEMOGLOBIN 9.8 g/dL (12.0-18.0); BG VENT MODE VENT- PRVC; BG VENT RATE 24 set
[2019-08-22 08:20] LABS: PLATELET ESTIMATE NORMAL
[2019-08-22] MEDS: CHOLECALCIFEROL (D3) 1000 UNIT TABLET NG SCH (08:35)
[2019-08-22] MEDS: FOLIC ACID/VITAMIN B COMP W-C TABLET NG SCH (08:35)
[2019-08-22] MEDS: ASCORBIC ACID 500 MG TABLET NG SCH ×2 (08:35→17:08)
[2019-08-22] MEDS: PANTOPRAZOLE SODIUM 40 MG/VIAL IV SCH (08:35)
[2019-08-22] MEDS: ZINC SULFATE 220 MG ( 50 ) CAPSULE NG SCH (08:36)
[2019-08-22] MEDS: ENOXAPARIN 80MG/0.8ML SYR SUBCUT SCH ×2 (08:36→21:13)
[2019-08-22] MEDS: IPRATROPIUM/ALBUTEROL 0.5-3(2.5)MG/3ML NEB HHN SCH ×4 (09:05→16:50)
[2019-08-22] MEDS: LORAZEPAM 2MG/ML CPJ IV PRN ×3 (10:53→23:22)
[2019-08-22] MEDS: MORPHINE SULFATE 2 MG/ML CPJ (NOT FOR IM USE) IV PRN (14:45)
[2019-08-22] MEDS: ACETAMINOPHEN 325MG TABLET PO PRN (15:16)
[2019-08-23] VITALS (56 sets, daily range): BP systolic 112–167; BP diastolic 56–90
[2019-08-23] MEDS: FENTANYL CITRATE/PF 1,000 MCG in SODIUM CHLORIDE 0.9% 80 ML IV PRN ×3 (02:51→21:43)
[2019-08-23] MEDS: MORPHINE SULFATE 2 MG/ML CPJ (NOT FOR IM USE) IV PRN (04:09)
[2019-08-23] MEDS: METOCLOPRAMIDE HCL 10MG/2ML VIAL IV SCH ×4 (05:00→23:05)
[2019-08-23] MEDS: AMPICILLIN 1,000 MG in SODIUM CHLORIDE 0.9% 50 ML IV SCH ×3 (05:00→17:48)
[2019-08-23 05:08] LABS: HEMATOCRIT. 27.9 % (42.0-52.0); HEMOGLOBIN. 9.5 g/dL (14.0-18.0); MEAN CORPUSCULAR HEMOGLOBIN 32.2 pg (28.0-32.0); MEAN PLATELET VOLUME 8.7 fl (7.4-10.4); PLATELET 392 x1000/uL (130-400); RED BLOOD CELL COUNT 2.97 mill/uL (4.7-6.1)
[2019-08-23 05:17] LABS: CHLORIDE 111 mEq/L (98-107)
[2019-08-23 07:14] LABS: NUCLEATED RED BLOOD CELLS 1 /100 WBC; PLATELET ESTIMATE NORMAL
[2019-08-23] MEDS: IPRATROPIUM/ALBUTEROL 0.5-3(2.5)MG/3ML NEB HHN SCH ×3 (08:43→20:45)
[2019-08-23 08:47] LABS: BG BASE EXCESS 2.1 mmol/L (-2.0-2.0); BG CARBOXYHEMOGLOBIN 0.3 % (0.5-1.5); BG DEOXYHEMOGLOBIN 4.8 % (0.0-5.0); BG FRACTION INSPIRED OXYGEN 40; BG HCO3 ACT 27.4 mmol/L (22.0-26.0); BG METHEMOGLOBIN 0.3 % (0.0-1.5); BG OXYGEN SATURATION 95.2 % (92.0-98.5); BG OXYHEMOGLOBIN 94.6 % (94.0-97.0); BG PCO2 45.5 mmHg (35.0-45.0); BG PH 7.397 (7.350-7.450); BG PO2 80.2 mmHg (75.0-100.0); BG SAMPLE SITE RIGHT RADIAL; BG TIDAL VOLUME(mL) 550 mL; BG TOTAL HEMOGLOBIN 10.2 g/dL (12.0-18.0); BG VENT MODE PRVC; BG VENT RATE 20 set
[2019-08-23] MEDS: PANTOPRAZOLE SODIUM 40 MG/VIAL IV SCH (09:24)
[2019-08-23] MEDS: ASCORBIC ACID 500 MG TABLET NG SCH ×2 (09:24→17:47)
[2019-08-23] MEDS: FOLIC ACID/VITAMIN B COMP W-C TABLET NG SCH (09:24)
[2019-08-23] MEDS: CHOLECALCIFEROL (D3) 1000 UNIT TABLET NG SCH (09:25)
[2019-08-23] MEDS: DOCUSATE SODIUM SUGAR FREE 100MG/10ML UDC NG PRN (09:26)
[2019-08-23] MEDS: ENOXAPARIN 80MG/0.8ML SYR SUBCUT SCH ×2 (09:26→20:39)
[2019-08-23] MEDS: ZINC SULFATE 220 MG ( 50 ) CAPSULE NG SCH (09:27)
[2019-08-23] MEDS: CLONIDINE 0.1MG TABLET PO PRN ×2 (09:27→15:51)
[2019-08-23] MEDS: LORAZEPAM 2MG/ML CPJ IV PRN ×3 (12:43→20:40)
[2019-08-23] MEDS: ACETAMINOPHEN 325MG TABLET PO PRN (20:40)
[2019-08-24] VITALS (53 sets, daily range): BP systolic 112–176; BP diastolic 58–91
[2019-08-24] MEDS: IPRATROPIUM/ALBUTEROL 0.5-3(2.5)MG/3ML NEB HHN SCH ×3 (00:34→20:55)
[2019-08-24] MEDS: METOCLOPRAMIDE HCL 10MG/2ML VIAL IV SCH ×3 (06:20→18:00)
[2019-08-24] MEDS: LORAZEPAM 2MG/ML CPJ IV PRN ×2 (06:20→11:03)
[2019-08-24] MEDS: FENTANYL CITRATE/PF 1,000 MCG in SODIUM CHLORIDE 0.9% 80 ML IV PRN ×3 (06:56→23:27)
[2019-08-24 07:52] LABS: BG BASE EXCESS -1.2 mmol/L (-2.0-2.0); BG CARBOXYHEMOGLOBIN 0.3 % (0.5-1.5); BG DEOXYHEMOGLOBIN 3.5 % (0.0-5.0); BG HCO3 ACT 23.7 mmol/L (22.0-26.0); BG METHEMOGLOBIN 0.1 % (0.0-1.5); BG OXYGEN SATURATION 96.5 % (92.0-98.5); BG OXYHEMOGLOBIN 96.1 % (94.0-97.0); BG PCO2 39.9 mmHg (35.0-45.0); BG PH 7.391 (7.350-7.450); BG PO2 90.9 mmHg (75.0-100.0); BG SAMPLE SITE RIGHT BRACHIAL; BG TIDAL VOLUME(mL) 550 mL; BG TOTAL HEMOGLOBIN 9.1 g/dL (12.0-18.0); BG VENT MODE VENT - A/C; BG VENT RATE 20 set
[2019-08-24] MEDS: ASCORBIC ACID 500 MG TABLET NG SCH ×2 (08:57→17:00)
[2019-08-24] MEDS: CHOLECALCIFEROL (D3) 1000 UNIT TABLET NG SCH (08:57)
[2019-08-24] MEDS: PANTOPRAZOLE SODIUM 40 MG/VIAL IV SCH (08:57)
[2019-08-24] MEDS: DOCUSATE SODIUM SUGAR FREE 100MG/10ML UDC NG PRN (08:57)
[2019-08-24] MEDS: ZINC SULFATE 220 MG ( 50 ) CAPSULE NG SCH (08:57)
[2019-08-24] MEDS: FOLIC ACID/VITAMIN B COMP W-C TABLET NG SCH (08:57)
[2019-08-24] MEDS: ENOXAPARIN 80MG/0.8ML SYR SUBCUT SCH ×2 (08:59→20:25)
[2019-08-24] MEDS: ACETAMINOPHEN 325MG TABLET PO PRN ×2 (16:13→20:26)
[2019-08-24] MEDS: CLONIDINE 0.1MG TABLET PO PRN (20:46)
[2019-08-25] VITALS (58 sets, daily range): BP systolic 89–179; BP diastolic 47–97
[2019-08-25] MEDS: METOCLOPRAMIDE HCL 10MG/2ML VIAL IV SCH ×4 (00:07→18:27)
[2019-08-25] MEDS: CLONIDINE 0.1MG TABLET PO PRN (00:08)
[2019-08-25] MEDS: LORAZEPAM 2MG/ML CPJ IV PRN ×3 (00:46→17:24)
[2019-08-25] MEDS: IPRATROPIUM/ALBUTEROL 0.5-3(2.5)MG/3ML NEB HHN SCH ×4 (01:33→21:40)
[2019-08-25] MEDS: FENTANYL CITRATE/PF 1,000 MCG in SODIUM CHLORIDE 0.9% 80 ML IV PRN ×2 (03:28→07:01)
[2019-08-25] MEDS: ACETAMINOPHEN 325MG TABLET PO PRN ×2 (04:22→08:34)
[2019-08-25 05:27] LABS: HEMOGLOBIN. 9.3 g/dL (14.0-18.0); MEAN CORPUSCULAR HEMOGLOBIN 31.8 pg (28.0-32.0); MEAN CORPUSCULAR VOLUME 95.6 fL (80.0-94.0); MEAN PLATELET VOLUME 8.3 fl (7.4-10.4); PLATELET 440 x1000/uL (130-400); RED BLOOD CELL COUNT 2.93 mill/uL (4.7-6.1); RED CELL DISTRIBUTION WIDTH 14.3 % (11.6-14.6)
[2019-08-25 05:31] LABS: CHLORIDE 112 mEq/L (98-107)
[2019-08-25 07:30] LABS: BG BASE EXCESS 1.7 mmol/L (-2.0-2.0); BG CARBOXYHEMOGLOBIN 0.3 % (0.5-1.5); BG HCO3 ACT 26.5 mmol/L (22.0-26.0); BG METHEMOGLOBIN 0.1 % (0.0-1.5); BG OXYHEMOGLOBIN 95.6 % (94.0-97.0); BG PCO2 42.3 mmHg (35.0-45.0); BG PH 7.414 (7.350-7.450); BG PO2 79.9 mmHg (75.0-100.0); BG SAMPLE SITE RIGHT RADIAL; BG TIDAL VOLUME(mL) 550 mL; BG TOTAL HEMOGLOBIN 8.6 g/dL (12.0-18.0); BG VENT MODE VENT - A/C; BG VENT RATE 18 set
[2019-08-25] MEDS: PANTOPRAZOLE SODIUM 40 MG/VIAL IV SCH (08:33)
[2019-08-25] MEDS: FOLIC ACID/VITAMIN B COMP W-C TABLET NG SCH (08:33)
[2019-08-25] MEDS: ASCORBIC ACID 500 MG TABLET NG SCH ×2 (08:33→17:00)
[2019-08-25] MEDS: ZINC SULFATE 220 MG ( 50 ) CAPSULE NG SCH (08:33)
[2019-08-25] MEDS: CHOLECALCIFEROL (D3) 1000 UNIT TABLET NG SCH (08:33)
[2019-08-25] MEDS: ENOXAPARIN 80MG/0.8ML SYR SUBCUT SCH ×2 (08:41→21:34)
[2019-08-25] MEDS ORDERED: POTASSIUM CHLORIDE 20MEQ/PACKET PO NR (11:15)
[2019-08-25] MEDS: SODIUM CHLORIDE 0.9% IV PRN (12:07)
[2019-08-25] MEDS: FENTANYL IV PRN (12:07)
[2019-08-25 12:19] LABS: PLATELET ESTIMATE INCREASED
[2019-08-25 12:25] LABS: PHOSPHORUS 2.9 mg/dL (2.5-4.9)
[2019-08-26] VITALS (96 sets, daily range): BP systolic 99–172; BP diastolic 48–108
[2019-08-26] MEDS: METOCLOPRAMIDE HCL 10MG/2ML VIAL IV SCH ×5 (00:02→23:29)
[2019-08-26] MEDS: LORAZEPAM 2MG/ML CPJ IV PRN ×2 (00:02→16:21)
[2019-08-26] MEDS: FENTANYL IV PRN ×3 (00:31→17:28)
[2019-08-26] MEDS: SODIUM CHLORIDE 0.9% IV PRN ×3 (00:31→17:28)
[2019-08-26] MEDS: IPRATROPIUM/ALBUTEROL 0.5-3(2.5)MG/3ML NEB HHN SCH ×4 (03:00→20:20)
[2019-08-26 05:26] LABS: HEMATOCRIT. 25.3 % (42.0-52.0); HEMOGLOBIN. 8.6 g/dL (14.0-18.0); MEAN CORPUSCULAR HEMOGLOBIN 32.3 pg (28.0-32.0); MEAN CORPUSCULAR VOLUME 94.8 fL (80.0-94.0); MEAN PLATELET VOLUME 8.2 fl (7.4-10.4); PLATELET 412 x1000/uL (130-400); RED BLOOD CELL COUNT 2.67 mill/uL (4.7-6.1); RED CELL DISTRIBUTION WIDTH 14.5 % (11.6-14.6)
[2019-08-26 05:49] LABS: CHLORIDE 112 mEq/L (98-107)
[2019-08-26] MEDS: PANTOPRAZOLE SODIUM 40 MG/VIAL IV SCH (09:48)
[2019-08-26] MEDS: ASCORBIC ACID 500 MG TABLET NG SCH ×2 (09:49→18:31)
[2019-08-26] MEDS: ZINC SULFATE 220 MG ( 50 ) CAPSULE NG SCH (09:49)
[2019-08-26] MEDS: CHOLECALCIFEROL (D3) 1000 UNIT TABLET NG SCH (09:49)
[2019-08-26] MEDS: FOLIC ACID/VITAMIN B COMP W-C TABLET NG SCH (09:49)
[2019-08-26 09:50] LABS: PLATELET ESTIMATE INCREASED
[2019-08-26 09:53] LABS: BG BASE EXCESS 7.7 mmol/L (-2.0-2.0); BG CARBOXYHEMOGLOBIN 0.3 % (0.5-1.5); BG DEOXYHEMOGLOBIN 5.2 % (0.0-5.0); BG FRACTION INSPIRED OXYGEN 60; BG HCO3 ACT 34.4 mmol/L (22.0-26.0); BG METHEMOGLOBIN 0.2 % (0.0-1.5); BG OXYGEN SATURATION 94.8 % (92.0-98.5); BG OXYHEMOGLOBIN 94.3 % (94.0-97.0); BG PCO2 60.8 mmHg (35.0-45.0); BG PH 7.371 (7.350-7.450); BG PO2 75.2 mmHg (75.0-100.0); BG SAMPLE SITE RIGHT RADIAL; BG TIDAL VOLUME(mL) 550 mL; BG TOTAL HEMOGLOBIN 10.3 g/dL (12.0-18.0); BG VENT MODE AC/PRVC; BG VENT RATE 18 set
[2019-08-26] MEDS: ENOXAPARIN 80MG/0.8ML SYR SUBCUT SCH ×2 (10:55→20:09)
[2019-08-26] MEDS ORDERED: QUETIAPINE FUMARATE 25MG TABLET PO NR (16:00)
[2019-08-26] MEDS: MORPHINE SULFATE 2 MG/ML CPJ (NOT FOR IM USE) IV PRN (18:31)
[2019-08-26] MEDS ORDERED: QUETIAPINE FUMARATE 25MG TABLET NG SCH (21:00)
[2019-08-27] VITALS (90 sets, daily range): BP systolic 102–182; BP diastolic 52–128
[2019-08-27] MEDS: IPRATROPIUM/ALBUTEROL 0.5-3(2.5)MG/3ML NEB HHN SCH ×4 (00:30→12:15)
[2019-08-27] MEDS: MORPHINE SULFATE 2 MG/ML CPJ (NOT FOR IM USE) IV PRN ×3 (02:13→23:16)
[2019-08-27] MEDS: LORAZEPAM 2MG/ML CPJ IV PRN ×2 (05:17→16:51)
[2019-08-27] MEDS: METOCLOPRAMIDE HCL 10MG/2ML VIAL IV SCH ×3 (05:17→16:54)
[2019-08-27] MEDS: CLONIDINE 0.1MG TABLET PO PRN (05:17)
[2019-08-27 05:48] LABS: BASOPHILS % 0.5 % (0.0-2.0); EOSINOPHILS % 2.7 % (0.0-5.0); HEMATOCRIT. 25.9 % (42.0-52.0); HEMOGLOBIN. 8.6 g/dL (14.0-18.0); LYMPHOCYTES % 9.6 % (20.0-50.0); MEAN CORPUSCULAR HEMOGLOBIN 31.5 pg (28.0-32.0); MEAN CORPUSCULAR VOLUME 94.3 fL (80.0-94.0); MEAN PLATELET VOLUME 8.6 fl (7.4-10.4); MONOCYTES % 2.9 % (2.0-8.0); NEUTROPHILS % 84.3 % (40.0-76.0); PLATELET 426 x1000/uL (130-400); RED BLOOD CELL COUNT 2.75 mill/uL (4.7-6.1); RED CELL DISTRIBUTION WIDTH 14.6 % (11.6-14.6)
[2019-08-27 06:01] LABS: CHLORIDE 109 mEq/L (98-107)
[2019-08-27] MEDS: SODIUM CHLORIDE 0.9% IV PRN (06:27)
[2019-08-27] MEDS: FENTANYL IV PRN (06:27)
[2019-08-27 07:49] LABS: BG CARBOXYHEMOGLOBIN 0.5 % (0.5-1.5); BG DEOXYHEMOGLOBIN 7.9 % (0.0-5.0); BG HCO3 ACT 31.4 mmol/L (22.0-26.0); BG METHEMOGLOBIN 0.4 % (0.0-1.5); BG OXYHEMOGLOBIN 91.2 % (94.0-97.0); BG PCO2 50.4 mmHg (35.0-45.0); BG PH 7.412 (7.350-7.450); BG PO2 60.6 mmHg (75.0-100.0); BG SAMPLE SITE RIGHT RADIAL; BG TIDAL VOLUME(mL) 550 mL; BG TOTAL HEMOGLOBIN 8.9 g/dL (12.0-18.0); BG VENT MODE VENT - A/C; BG VENT RATE 18 set
[2019-08-27] MEDS: ASCORBIC ACID 500 MG TABLET NG SCH ×2 (09:28→16:51)
[2019-08-27] MEDS: CHOLECALCIFEROL (D3) 1000 UNIT TABLET NG SCH (09:28)
[2019-08-27] MEDS: PANTOPRAZOLE SODIUM 40 MG/VIAL IV SCH (09:28)
[2019-08-27] MEDS: QUETIAPINE FUMARATE 50MG TABLET NG SCH ×2 (09:29→21:00)
[2019-08-27] MEDS: ENOXAPARIN 80MG/0.8ML SYR SUBCUT SCH (09:29)
[2019-08-27] MEDS: ZINC SULFATE 220 MG ( 50 ) CAPSULE NG SCH (09:29)
[2019-08-27] MEDS: FOLIC ACID/VITAMIN B COMP W-C TABLET NG SCH (09:29)
[2019-08-27] MEDS: DOCUSATE SODIUM SUGAR FREE 100MG/10ML UDC NG PRN ×2 (09:29→16:51)
[2019-08-27] MEDS: ENOXAPARIN 60MG/0.6ML SYR SUBCUT SCH (21:00)
[2019-08-27] MEDS: ACETAMINOPHEN 325MG TABLET PO PRN (23:18)
[2019-08-28] VITALS (46 sets, daily range): BP systolic 74–148; BP diastolic 42–73
[2019-08-28] MEDS: METOCLOPRAMIDE HCL 10MG/2ML VIAL IV SCH ×4 (00:06→18:00)
[2019-08-28] MEDS: ACETYLCYSTEINE 100MG/ML 10% VIAL 4ML INH SCH ×2 (00:25→15:56)
[2019-08-28] MEDS: FENTANYL IV PRN ×2 (00:43→16:52)
[2019-08-28] MEDS: SODIUM CHLORIDE 0.9% IV PRN ×2 (00:43→16:52)
[2019-08-28] MEDS: LORAZEPAM 2MG/ML CPJ IV PRN ×5 (02:14→21:42)
[2019-08-28] MEDS: CHOLECALCIFEROL (D3) 1000 UNIT TABLET NG SCH (08:31)
[2019-08-28] MEDS: FOLIC ACID/VITAMIN B COMP W-C TABLET NG SCH (08:31)
[2019-08-28] MEDS: QUETIAPINE FUMARATE 50MG TABLET NG SCH ×2 (08:31→20:58)
[2019-08-28] MEDS: PANTOPRAZOLE SODIUM 40 MG/VIAL IV SCH (08:31)
[2019-08-28] MEDS: DOCUSATE SODIUM SUGAR FREE 100MG/10ML UDC NG PRN (08:31)
[2019-08-28] MEDS: ZINC SULFATE 220 MG ( 50 ) CAPSULE NG SCH (08:31)
[2019-08-28] MEDS: ASCORBIC ACID 500 MG TABLET NG SCH ×2 (08:31→17:09)
[2019-08-28] MEDS: ENOXAPARIN 60MG/0.6ML SYR SUBCUT SCH ×2 (08:46→20:59)
[2019-08-28 09:17] LABS: BG BASE EXCESS -2.2 mmol/L (-2.0-2.0); BG CARBOXYHEMOGLOBIN 0.3 % (0.5-1.5); BG DEOXYHEMOGLOBIN 13.6 % (0.0-5.0); BG FRACTION INSPIRED OXYGEN 100; BG METHEMOGLOBIN 0.2 % (0.0-1.5); BG OXYGEN SATURATION 86.3 % (92.0-98.5); BG OXYHEMOGLOBIN 85.9 % (94.0-97.0); BG PCO2 47.9 mmHg (35.0-45.0); BG PH 7.318 (7.350-7.450); BG SAMPLE SITE RIGHT RADIAL; BG TIDAL VOLUME(mL) 500 mL; BG VENT MODE VENT- PRVC; BG VENT RATE 18 set
[2019-08-28] MEDS: IPRATROPIUM/ALBUTEROL 0.5-3(2.5)MG/3ML NEB HHN SCH ×4 (10:04→21:13)
[2019-08-28] MEDS: MORPHINE SULFATE 2 MG/ML CPJ (NOT FOR IM USE) IV PRN (14:43)
[2019-08-28] MEDS: ACETAMINOPHEN 325MG TABLET PO PRN (21:43)
[2019-08-29] VITALS (45 sets, daily range): BP systolic 79–141; BP diastolic 41–83
[2019-08-29] MEDS: IPRATROPIUM/ALBUTEROL 0.5-3(2.5)MG/3ML NEB HHN SCH ×7 (01:20→22:58)
[2019-08-29] MEDS: MORPHINE SULFATE 2 MG/ML CPJ (NOT FOR IM USE) IV PRN ×2 (01:45→08:48)
[2019-08-29] MEDS: LORAZEPAM 2MG/ML CPJ IV PRN ×3 (02:41→12:43)
[2019-08-29] MEDS: NOREPINEPHRINE 8 MG in DEXT 5% WATER 242 ML IV PRN (03:13)
[2019-08-29 05:32] LABS: HEMATOCRIT. 25.3 % (42.0-52.0); HEMOGLOBIN. 8.4 g/dL (14.0-18.0); MEAN CORPUSCULAR HEMOGLOBIN 31.1 pg (28.0-32.0); MEAN CORPUSCULAR VOLUME 94.3 fL (80.0-94.0); MEAN PLATELET VOLUME 8.7 fl (7.4-10.4); PLATELET 365 x1000/uL (130-400); RED BLOOD CELL COUNT 2.69 mill/uL (4.7-6.1); RED CELL DISTRIBUTION WIDTH 14.7 % (11.6-14.6)
[2019-08-29 05:38] LABS: CHLORIDE 108 mEq/L (98-107)
[2019-08-29] MEDS: METOCLOPRAMIDE HCL 10MG/2ML VIAL IV SCH ×4 (06:40→17:50)
[2019-08-29] MEDS: ASCORBIC ACID 500 MG TABLET NG SCH ×2 (08:46→17:50)
[2019-08-29] MEDS: FOLIC ACID/VITAMIN B COMP W-C TABLET NG SCH (08:46)
[2019-08-29] MEDS: ZINC SULFATE 220 MG ( 50 ) CAPSULE NG SCH (08:46)
[2019-08-29] MEDS: CHOLECALCIFEROL (D3) 1000 UNIT TABLET NG SCH (08:47)
[2019-08-29] MEDS: DOCUSATE SODIUM SUGAR FREE 100MG/10ML UDC NG PRN (08:47)
[2019-08-29] MEDS: ENOXAPARIN 60MG/0.6ML SYR SUBCUT SCH ×2 (08:47→21:27)
[2019-08-29] MEDS: QUETIAPINE FUMARATE 50MG TABLET NG SCH ×2 (08:47→21:26)
[2019-08-29] MEDS: ACETYLCYSTEINE 100MG/ML 10% VIAL 4ML INH SCH ×2 (08:54→16:43)
[2019-08-29] MEDS: PANTOPRAZOLE SODIUM 40 MG/VIAL IV SCH (09:00)
[2019-08-29] MEDS: ACETAMINOPHEN 325MG TABLET PO PRN ×2 (09:10→21:28)
[2019-08-29 09:32] LABS: BG BASE EXCESS 2.2 mmol/L (-2.0-2.0); BG CARBOXYHEMOGLOBIN 0.3 % (0.5-1.5); BG DEOXYHEMOGLOBIN 12.4 % (0.0-5.0); BG FRACTION INSPIRED OXYGEN 100; BG HCO3 ACT 28.3 mmol/L (22.0-26.0); BG METHEMOGLOBIN 1.8 % (0.0-1.5); BG OXYGEN SATURATION 87.3 % (92.0-98.5); BG OXYHEMOGLOBIN 85.5 % (94.0-97.0); BG PCO2 52.1 mmHg (35.0-45.0); BG PH 7.353 (7.350-7.450); BG PO2 57.5 mmHg (75.0-100.0); BG SAMPLE SITE RIGHT RADIAL; BG TIDAL VOLUME(mL) 550 mL; BG TOTAL HEMOGLOBIN 9.3 g/dL (12.0-18.0); BG VENT MODE VENT-PRVC; BG VENT RATE 18 set
[2019-08-29 09:44] LABS: PLATELET ESTIMATE NORMAL
[2019-08-29] MEDS ORDERED: MAGNESIUM 2 G PREMIX 50 ML IV SCH (12:00)
[2019-08-29] MEDS: PROPOFOL 10MG/ML 100ML 100 ML IV PRN (21:31)
[2019-08-30] VITALS (57 sets, daily range): BP systolic 45–142; BP diastolic 24–70
[2019-08-30] MEDS: METOCLOPRAMIDE HCL 10MG/2ML VIAL IV SCH ×3 (00:58→12:05)
[2019-08-30] MEDS: NOREPINEPHRINE 8 MG in DEXT 5% WATER 242 ML IV PRN ×2 (00:59→14:50)
[2019-08-30] MEDS: SODIUM CHLORIDE 0.9% IV PRN (01:00)
[2019-08-30] MEDS: FENTANYL IV PRN (01:00)
[2019-08-30] MEDS: PIPERACILLIN/TAZOBACTAM 3.375 G in DEXT 5% WATER 100 ML IV SCH ×3 (01:16→12:05)
[2019-08-30] MEDS: LORAZEPAM 2MG/ML CPJ IV PRN (01:17)
[2019-08-30] MEDS: IPRATROPIUM/ALBUTEROL 0.5-3(2.5)MG/3ML NEB HHN SCH ×3 (02:17→14:45)
[2019-08-30] MEDS: ACETYLCYSTEINE 100MG/ML 10% VIAL 4ML INH SCH ×2 (02:17→09:30)
[2019-08-30] MEDS: PROPOFOL 10MG/ML 100ML 100 ML IV PRN ×3 (03:09→12:23)
[2019-08-30] MEDS: MORPHINE SULFATE 2 MG/ML CPJ (NOT FOR IM USE) IV PRN (03:16)
[2019-08-30 04:55] LABS: BASOPHILS % 0.5 % (0.0-2.0); HEMATOCRIT. 24.1 % (42.0-52.0); HEMOGLOBIN. 7.9 g/dL (14.0-18.0); LYMPHOCYTES % 7.9 % (20.0-50.0); MEAN CORPUSCULAR VOLUME 94.3 fL (80.0-94.0); MEAN PLATELET VOLUME 8.9 fl (7.4-10.4); MONOCYTES % 3.9 % (2.0-8.0); NEUTROPHILS % 84.7 % (40.0-76.0); PLATELET 391 x1000/uL (130-400); RED BLOOD CELL COUNT 2.56 mill/uL (4.7-6.1); RED CELL DISTRIBUTION WIDTH 14.7 % (11.6-14.6)
[2019-08-30 05:03] LABS: CHLORIDE 108 mEq/L (98-107)
[2019-08-30 05:13] LABS: PHOSPHORUS 3.2 mg/dL (2.5-4.9)
[2019-08-30] MEDS: PANTOPRAZOLE SODIUM 40 MG/VIAL IV SCH (08:03)
[2019-08-30] MEDS: ASCORBIC ACID 500 MG TABLET NG SCH (08:03)
[2019-08-30] MEDS: QUETIAPINE FUMARATE 50MG TABLET NG SCH (08:03)
[2019-08-30] MEDS: ENOXAPARIN 60MG/0.6ML SYR SUBCUT SCH (08:03)
[2019-08-30] MEDS: CHOLECALCIFEROL (D3) 1000 UNIT TABLET NG SCH (08:03)
[2019-08-30] MEDS: ZINC SULFATE 220 MG ( 50 ) CAPSULE NG SCH (08:03)
[2019-08-30] MEDS: FOLIC ACID/VITAMIN B COMP W-C TABLET NG SCH (08:03)
[2019-08-30 08:10] LABS: BG BASE EXCESS 3.7 mmol/L (-2.0-2.0); BG CARBOXYHEMOGLOBIN 0.3 % (0.5-1.5); BG DEOXYHEMOGLOBIN 8.2 % (0.0-5.0); BG FRACTION INSPIRED OXYGEN 100; BG HCO3 ACT 28.8 mmol/L (22.0-26.0); BG METHEMOGLOBIN 0.1 % (0.0-1.5); BG OXYGEN SATURATION 91.8 % (92.0-98.5); BG OXYHEMOGLOBIN 91.4 % (94.0-97.0); BG PCO2 46.2 mmHg (35.0-45.0); BG PH 7.412 (7.350-7.450); BG PO2 60.4 mmHg (75.0-100.0); BG SAMPLE SITE RIGHT RADIAL; BG TIDAL VOLUME(mL) 550 mL; BG TOTAL HEMOGLOBIN 8.7 g/dL (12.0-18.0); BG VENT MODE VENT- PRVC; BG VENT RATE 18 set
[2019-08-30 10:20] LABS: CLARITY URINE CLOUDY (CLEAR); COLOR URINE YELLOW (YELLOW); KETONES URINE NEGATIVE (NEGATIVE); LEUKOCYTE ESTERASE URINE 2+ (NEGATIVE); NITRITE URINE POSITIVE (NEGATIVE); OCCULT BLOOD URINE 1+ (NEGATIVE); PH URINE 5.5 (4.5-8.0); PROTEIN URINE 1+ (NEGATIVE); SPECIFIC GRAVITY URINE 1.025 (1.005-1.030)
[2019-08-30] MEDS ORDERED: PROPOFOL 10MG/ML 100ML 100 ML IV PRN (12:30)
== END 2019-08-30 15:39 | disposition expired | DRG 4 ==
LOC: ER 07:33 → EDBEDREQTM 08:44 → EDBEDREQ 08:44 → EDBEDREQSVC 08:44 → EDBD 10:12 → 7WST 10:12 → EDBEDREQ 10:14 → EDBEDREQTM 10:14 → ENRESERV 23:03 → ER 23:30 → MICUSO 08-07 14:59
PROVIDERS: ADMIT Hospitalist; ATTEND Hospitalist
PROC: 5A1955Z Respiratory Ventilation, Greater than 96 Consecutive Hours (ICD-10-PCS; principal; 2019-08-07)
PROC: 0B110F4 Bypass Trachea to Cutaneous with Tracheostomy Device, Open Approach (ICD-10-PCS; 2019-08-07)
PROC: 0GBJ0ZZ Excision of Thyroid Gland Isthmus, Open Approach (ICD-10-PCS; 2019-08-07)
PROC: 02HV33Z Insertion of Infusion Device into Superior Vena Cava, Percutaneous Approach (ICD-10-PCS; 2019-08-16)
PROC: B548ZZA Ultrasonography of Superior Vena Cava, Guidance (ICD-10-PCS; 2019-08-16)
DX: A41.89 Other specified sepsis (principal); U07.1 COVID-19; J96.01 Acute respiratory failure with hypoxia; D68.59 Other primary thrombophilia; E86.0 Dehydration; B97.89 Other viral agents as the cause of diseases classified elsewhere; J12.89 Other viral pneumonia; D64.9 Anemia, unspecified; B95.2 Enterococcus as the cause of diseases classified elsewhere; E83.42 Hypomagnesemia; E87.0 Hyperosmolality and hypernatremia; E87.5 Hyperkalemia; G92 Toxic encephalopathy; R65.21 Severe sepsis with septic shock; N17.9 Acute kidney failure, unspecified; R74.0 Nonspecific elevation of levels of transaminase and lactic acid dehydrogenase [LDH]; E43 Unspecified severe protein-calorie malnutrition; E87.1 Hypo-osmolality and hyponatremia; E88.09 Other disorders of plasma-protein metabolism, not elsewhere classified; Z99.11 Dependence on respirator [ventilator] status; Z79.899 Other long term (current) drug therapy
CPT/HCPCS: 36415; 36600; 71045; 71275; 76937; 80048; 80053; 80076; 81003; 82375; 82550; 82728; 82805; 82962; 83605; 83615; 83735; 83880; 84100; 84132; 84145; 84478; 84484; 85025; 85027; 85379; 85384; 86140; 86706; 86803; 86850; 86900; 86927; 87070; 87077; 87186; 90732; 93005; 93970; 94002; 94003; 94640; 96365; 99291; C1725; C9113; J0290; J0456; J0461; J0610; J0692; J0696; J1100; J1650; J1815; J1940; J1956; J2020; J2060; J2250; J2270; J2370; J2405; J2543; J2704; J2765; J3010; J3475; J3490; J7042; J7050; J7060; J7608; J8540; P9017; Q9967; C9803-CS; U0003-CS